=== PATIENT | male | born 2000 | race Two or more races ===

== ENCOUNTER 2022-06-08 13:24 | Outpatient (CLI) | payer OTHER | END 2022-06-08 13:34 | disposition home or self-care (01) | LOC: RAD 13:24 | PROVIDERS: ATTEND Orthopaedic Surgery | DX: S62.326A Displaced fracture of shaft of fifth metacarpal bone, right hand, initial encounter for closed fracture (principal) ==

== ENCOUNTER 2022-06-22 12:02 | Outpatient (CLI) | payer OTHER | END 2022-06-22 12:11 | disposition home or self-care (01) | LOC: RAD 12:02 | PROVIDERS: ATTEND Orthopaedic Surgery | DX: S62.326D Displaced fracture of shaft of fifth metacarpal bone, right hand, subsequent encounter for fracture with routine healing (principal) ==